=== PATIENT | female | born 1985 | race American Indian/Alaskan Native ===

== ENCOUNTER 2019-07-01 10:15 | Emergency (ER) | payer MEDICAID ==
--- NOTE | 2019-07-01 11:11 | Emergency Department Report ---
Blank Doc - Documentation Documentation: 33-year-old female that presents with left pelvic pain with 5 weeks . Denies any vaginal bleeding. This initial assessment/diagnostic orders/clinical plan/treatment(s) is/are subject to change based on patient's health status, clinical progression and re- assessment by fellow clinical providers in the ED. Further treatment and workup at subsequent clinical providers discretion. Patient/guardians urged not to elope from the ED as their condition may be serious if not clinically assessed and managed. Initial orders include: 1- Patient sent to [facility] for further evaluation and treatment 2- labs 3- UA 4- State US OB and transvaginal
[2019-07-01 12:11] LABS: Basophils # (Auto) 0.1 K/mm3 (0.0-0.1); Basophils % (Auto) 0.7 % (0.0-1.8); Eosinophils % (Auto) 0.3 % (0.0-4.3); Hematocrit 36.5 % (30.3-42.9); Lymphocytes # (Auto) 2.4 K/mm3 (1.2-5.4); Lymphocytes % (Auto) 32.1 % (13.4-35.0); Mean Corpuscular HGB Conc 33 % (30-34); Mean Corpuscular Volume 87 fl (79-97); Monocytes # (Auto) 0.5 K/mm3 (0.0-0.8); Monocytes % (Auto) 6.4 % (0.0-7.3); Platelet Count 262 K/mm3 (140-440); Red Blood Count 4.19 M/mm3 (3.65-5.03); Red Cell Distribution Width 15.2 % (13.2-15.2)
[2019-07-01 12:16] LABS: Alanine Aminotransferase 7 units/L (7-56); Albumin 4.3 g/dL (3.9-5); BUN/Creatinine Ratio 12; Blood Urea Nitrogen 7 mg/dL (7-17); Calcium 8.8 mg/dL (8.4-10.2); Hemolysis Index 18
--- NOTE | 2019-07-01 12:18 | Ultrasound Report ---
ULTRASOUND OB LESS THAN EQUAL TO 14 WEEKS FETUS ULTRASOUND OB TRANSVAGINAL HISTORY: Pelvic pain, evaluate for ectopic COMPARISON: None. TECHNIQUE: Routine transabdominal and transvaginal OB ultrasound performed. FINDINGS: Uterus: Mildly enlarged measuring 10.1 x 7.2 x 7.3 cm. Gestational Sac: Well-defined oval shape and intrauterine in location. Average diameter measures 6.1 mm which correlates with a 5 week 2 day . Yolk Sac: Normal in appearance. Fetus/Embryo: Not seen Embryonic/ cardiac activity: Not seen. Placenta: Too small for evaluation. Amniotic fluid volume: Subjectively appropriate for gestational age. Ovaries: The right ovary is normal in size and appearance with normal blood flow, measuring 4.6 x 2. 2 x 2.5 cm. A 1.9 cm simple cyst is identified in the right ovary. The left ovary is normal in size a nd appearance with normal blood flow, measuring 2.8 x 1.5 x 1.8 cm. No pelvic fluid collection. Additional findings: None. IMPRESSION Probable early normal intrauterine . An intrauterine gestational sac containing a yolk sac i s identified. No pole or cardiac activity is identified at this time. Close interval foll ow-up is recommended. Right ovarian cyst. Signer Name: José Miguel Morley Jr, MD Signed: 07/01/2019 12:13 PM Workstation Name: [id number]
[2019-07-01 12:38] LABS: Bacteria,Urine 1+ /HPF (Negative); Bilirubin,Urine NEG (Negative); Blood,Urine NEG (Negative); Color,Urine Yellow (Yellow); Mucus,Urine 3+ /HPF; Protein,Urine <15 mg/dL mg/dL (Negative); Urobilinogen,Urine < 2.0 mg/dL (<2.0)
--- NOTE | 2019-07-01 16:39 | Emergency Department Report ---
ED Abdominal Pain HPI - General Chief Complaint: Abdominal Pain Stated Complaint: ABD PAIN/ Time Seen by Provider: 07/01/19 11:08 Source: patient Mode of arrival: Ambulatory Limitations: No Limitations - History of Present Illness Initial Comments: 33-year-old female, , presents to ED with left lower quadrant pain 2 weeks, worsening over the last 3 days. Patient states she found out this morning and that she was after going to [facility] for evaluation of abdominal pain. Patient states test was time, she was informed that she was , and discharged with advice to follow with her [facility]. Patient states no ultrasound was performed. Patient denies any vaginal discharge, vaginal bleeding. MD Complaint: abdominal pain -: week(s) (2) Location: LLQ Radiation: suprapubic Migration to: no migration Severity: moderate Quality: sharp Consistency: constant Improves With: nothing Worsens With: movement, other (palpation) Associated Symptoms: denies: fever, dysuria, hematuria - Related Data LMP (females 10-50): Allergies Allergy/AdvReac Type Severity Reaction Status Date / Time latex Allergy Unknown Verified 07/01/19 10:18 ED Review of Systems ROS: Stated complaint: ABD PAIN/ Other details as noted in HPI Comment: All other systems reviewed and negative Constitutional: denies: chills, fever Gastrointestinal: abdominal pain. denies: nausea, vomiting Genitourinary: other (denies vag bleeding). denies: discharge ED Past Medical Hx - Past Medical History Previous Medical History?: No - Surgical History Past Surgical History?: No - Social History Smoking Status: Never Smoker Substance Use Type: None ED Physical Exam - General Limitations: No Limitations General appearance: alert, in no apparent distress - Head Head exam: Present: atraumatic, normocephalic - Eye Eye exam: Present: normal appearance, PERRL, EOMI - ENT ENT exam: Present: mucous membranes moist - Neck Neck exam: Present: normal inspection - Respiratory Respiratory exam: Present: normal lung sounds bilaterally. Absent: respiratory distress - Cardiovascular Cardiovascular Exam: Present: regular rate, normal rhythm - GI/Abdominal GI/Abdominal exam: Present: soft, tenderness (LLQ tenderness present). Absent: distended - Extremities Exam Extremities exam: Present: normal inspection - Neurological Exam Neurological exam: Present: alert, oriented X3 - Psychiatric Psychiatric exam: Present: normal affect, normal mood - Skin Skin exam: Present: warm, dry, intact, normal color ED Course Vital Signs 07/01/19 07/01/19 10:23 16:56 Temperature 97.9 F 98.6 F Pulse Rate 54 L 60 Respiratory 20 18 Rate Blood Pressure 158/73 Blood Pressure 136/84 [Right] O2 Sat by Pulse 100 99 Oximetry ED Medical Decision Making - Lab Data Result diagrams: 07/01/19 11:34 07/01/19 11:34 - Radiology Data Radiology results: report reviewed, image reviewed - Medical Decision Making US shows gestational sac and yolk sac, measuring 5 weeks 2 days. No adnexal masses, no signs of ectopic . Pt advised to return for f/u US and hcg level. - Differential Diagnosis ectopic preg, threatened AB, IUP, UTI Critical care attestation.: If time is entered above; I have spent that time in minutes in the direct care of this critically ill patient, excluding procedure time. ED Disposition Clinical Impression: , Abdominal pain Disposition: TO HOME OR SELFCARE Is pt being admited?: No Condition: Stable Instructions: Abdominal Pain (ED), Abdominal Pain in (ED) Additional Instructions: Return to the ER in 2 days for a repeat ultrasound and hormone level. Your hormone level today is 3,315. Referrals: PRIMARY CAREMD [Primary Care Provider] - 3-5 Days HUGO IVERSON MD [Staff Physician] - 3-5 Days Time of Disposition: 16:41
[2019-07-01 16:57] VITALS: BP 136/84
== END 2019-07-01 16:58 | disposition home or self-care (01) ==
LOC: ED 10:15
DX: O26.891 Other specified pregnancy related conditions, first trimester (principal); Z91.040 Latex allergy status; Z3A.14 14 weeks gestation of pregnancy
CPT/HCPCS: 36415; 76801; 76817; 80053; 81001; 84702; 85025; 99284

== ENCOUNTER 2019-07-06 11:56 | Emergency (ER) | payer MEDICAID ==
--- NOTE | 2019-07-06 12:05 | Event Note ---
ED Screening Note Date of service: 07/06/19 Time: 12:04 ED Screening Note: This is a 33 y.o. F. that presents to the ER with vaginal bleeding and pelvic pain that started 30 minutes ago. Patient states she had a confirmed last week. Patient not sure of gestation. LMP 05/19/2019, A1 This initial assessment/diagnostic orders/clinical plan/treatment(s) is/are subject to change based on patients health status, clinical progression and re- assessment by fellow clinical providers in the ED. Further treatment and workup at subsequent clinical providers discretion. Patient/guardian urged not to elope from the ED as their condition may be serious if not clinically assessed and managed. Initial orders include: Labs and OB US
--- NOTE | 2019-07-06 12:37 | Emergency Department Report ---
ED Female HPI - General Chief complaint: Vaginal Bleeding Stated complaint: BLEEDING//PAIN Time Seen by Provider: 07/06/19 12:04 Source: patient, family Mode of arrival: Wheelchair Limitations: No Limitations - History of Present Illness Initial comments: 33-year-old female with apparently the third emergency department visit during the current . She went to [facility] [place] and here 1 week ago. At this facility she was found to have on ultrasound: IMPRESSION Probable early normal intrauterine . An intrauterine gestational sac containing a yolk sac is identified. No pole or cardiac activity is identified at this time. Close interval follow-up is recommended. Right ovarian cyst. At that time she had a quantitative hCG of 3300. The patient states that she had some thin vaginal bleeding today. She states that she's been having cramps for 2 weeks. She states her last period was May 11 and then her normal cycle is "40 days". She is now 7 with 5 children and one voluntary interruption of . Complaint: vaginal bleeding -: Gradual, hour(s) (bleeding for hours cramps for weeks) Quality: cramping Consistency: intermittent Improves with: none Worsens with: none Are you Now?: Yes - Related Data Allergies Allergy/AdvReac Type Severity Reaction Status Date / Time latex Allergy Unknown Verified 07/06/19 12:06 ED Review of Systems ROS: Stated complaint: BLEEDING//PAIN Other details as noted in HPI Constitutional: denies: chills, fever Eyes: denies: eye pain, eye discharge, vision change ENT: denies: ear pain, throat pain Respiratory: denies: cough, shortness of breath, wheezing Cardiovascular: denies: chest pain, palpitations Endocrine: no symptoms reported Gastrointestinal: denies: abdominal pain, nausea, diarrhea Genitourinary: as per HPI, other (vaginal bleeding, pelvic cramping). denies: urgency, dysuria Musculoskeletal: denies: back pain, joint swelling, arthralgia Skin: denies: rash, lesions Neurological: denies: headache, weakness, paresthesias Psychiatric: denies: anxiety, depression Hematological/Lymphatic: denies: easy bleeding, easy bruising ED Past Medical Hx - Past Medical History Hx Hypertension: Yes Hx Diabetes: Yes Hx Asthma: Yes - Surgical History Past Surgical History?: No - Social History Smoking Status: Current Every Day Smoker Substance Use Type: Alcohol ED Physical Exam - General Limitations: No Limitations General appearance: alert, in no apparent distress - Head Head exam: Present: atraumatic, normocephalic - Eye Eye exam: Present: normal appearance. Absent: scleral icterus - ENT ENT exam: Present: mucous membranes moist - Neck Neck exam: Present: normal inspection - Respiratory Respiratory exam: Present: normal lung sounds bilaterally. Absent: respiratory distress - Cardiovascular Cardiovascular Exam: Present: regular rate, normal rhythm. Absent: systolic murmur, diastolic murmur, rubs, gallop - GI/Abdominal GI/Abdominal exam: Present: soft, normal bowel sounds. Absent: distended, tenderness, guarding, rebound, rigid - Extremities Exam Extremities exam: Present: normal inspection - Back Exam Back exam: Present: normal inspection - Neurological Exam Neurological exam: Present: alert, oriented X3, CN II-XII intact. Absent: motor sensory deficit - Psychiatric Psychiatric exam: Present: normal affect, normal mood - Skin Skin exam: Present: warm, dry, intact, normal color. Absent: rash ED Course Vital Signs 07/06/19 07/06/19 07/06/19 12:06 12:31 14:00 Temperature 98.1 F 98 F Pulse Rate 78 74 64 Respiratory 18 16 14 Rate Blood Pressure 137/68 Blood Pressure 105/72 128/66 [Left] O2 Sat by Pulse 99 98 100 Oximetry ED Medical Decision Making - Lab Data Result diagrams: 07/06/19 12:28 Laboratory Results - last 24 hr 07/06/19 07/06/19 07/06/19 12:28 12:28 12:28 WBC 12.9 H RBC 4.25 Hgb 12.4 Hct 37.2 MCV 88 MCH 29 MCHC 33 RDW 15.6 H Plt Count 288 Lymph % (Auto) 15.8 [place] % (Auto) 7.1 Eos % (Auto) 0.3 Baso % (Auto) 0.8 Lymph # 2.0 [place] # 0.9 H Eos # 0.0 Baso # 0.1 Seg Neutrophils % 76.0 H Seg Neutrophils # 9.8 H HCG, Quant 3469 H Blood Type O POSITIVE Laboratory Results - last 24 hr 07/06/19 07/06/19 07/06/19 12:28 12:28 12:28 WBC 12.9 H RBC 4.25 Hgb 12.4 Hct 37.2 MCV 88 MCH 29 MCHC 33 RDW 15.6 H Plt Count 288 Lymph % (Auto) 15.8 [place] % (Auto) 7.1 Eos % (Auto) 0.3 Baso % (Auto) 0.8 Lymph # 2.0 [place] # 0.9 H Eos # 0.0 Baso # 0.1 Seg Neutrophils % 76.0 H Seg Neutrophils # 9.8 H HCG, Quant 3469 H Blood Type O POSITIVE Laboratory Results - last 24 hr 07/06/19 07/06/19 07/06/19 12:28 12:28 12:28 WBC 12.9 H RBC 4.25 Hgb 12.4 Hct 37.2 MCV 88 MCH 29 MCHC 33 RDW 15.6 H Plt Count 288 Lymph % (Auto) 15.8 [place] % (Auto) 7.1 Eos % (Auto) 0.3 Baso % (Auto) 0.8 Lymph # 2.0 [place] # 0.9 H Eos # 0.0 Baso # 0.1 Seg Neutrophils % 76.0 H Seg Neutrophils # 9.8 H HCG, Quant 3469 H Blood Type O POSITIVE Laboratory Results - last 24 hr 07/06/19 07/06/19 07/06/19 12:28 12:28 12:28 WBC 12.9 H RBC 4.25 Hgb 12.4 Hct 37.2 MCV 88 MCH 29 MCHC 33 RDW 15.6 H Plt Count 288 Lymph % (Auto) 15.8 [place] % (Auto) 7.1 Eos % (Auto) 0.3 Baso % (Auto) 0.8 Lymph # 2.0 [place] # 0.9 H Eos # 0.0 Baso # 0.1 Seg Neutrophils % 76.0 H Seg Neutrophils # 9.8 H HCG, Quant 3469 H Blood Type O POSITIVE Laboratory Results - last 24 hr 07/06/19 07/06/19 07/06/19 12:06 12:28 12:28 WBC 12.9 H RBC 4.25 Hgb 12.4 Hct 37.2 MCV 88 MCH 29 MCHC 33 RDW 15.6 H Plt Count 288 Lymph % (Auto) 15.8 [place] % (Auto) 7.1 Eos % (Auto) 0.3 Baso % (Auto) 0.8 Lymph # 2.0 [place] # 0.9 H Eos # 0.0 Baso # 0.1 Seg Neutrophils % 76.0 H Seg Neutrophils # 9.8 H HCG, Quant 3469 H Urine Color Yellow Urine Turbidity Cloudy Urine pH 7.0 Ur Specific [place] 1.017 Urine Protein 30 mg/dl Urine Glucose (UA) Neg Urine Ketones Neg Urine Blood Lg Urine Nitrite Neg Urine Bilirubin Neg Urine Urobilinogen < 2.0 Ur Leukocyte Esterase Sm Urine WBC (Auto) 28.0 H Urine RBC (Auto) > 182.0 U Epithel Cells (Auto) 1.0 Urine Mucus Few Blood Type 07/06/19 12:28 WBC RBC Hgb Hct MCV MCH MCHC RDW Plt Count Lymph % (Auto) [place] % (Auto) Eos % (Auto) Baso % (Auto) Lymph # [place] # Eos # Baso # Seg Neutrophils % Seg Neutrophils # HCG, Quant Urine Color Urine Turbidity Urine pH Ur Specific [place] Urine Protein Urine Glucose (UA) Urine Ketones Urine Blood Urine Nitrite Urine Bilirubin Urine Urobilinogen Ur Leukocyte Esterase Urine WBC (Auto) Urine RBC (Auto) U Epithel Cells (Auto) Urine Mucus Blood Type O POSITIVE - Radiology Data interpreted by me: FINDINGS: There is no sonographic evidence of intrauterine . No gestational sac is seen. There is a 3 cm right ovarian cyst. The right ovary is otherwise unremarkable. Left ovary is unremarkable. No adnexal lesions are seen. IMPRESSION: 1. Previously seen intrauterine gestational sac is no longer identified. These findings are concerning for miscarriage. 2. No adnexal lesions, no free fluid. Signer Name: Jose Arguelles MD Critical care attestation.: If time is entered above; I have spent that time in minutes in the direct care of this critically ill patient, excluding procedure time. ED Disposition Clinical Impression: Spontaneous UTI (urinary tract infection) Qualifiers: Urinary tract infection type: site unspecified Hematuria presence: with hematuria Qualified Code(s): N39.0 - Urinary tract infection, site not specified; R31.9 - Hematuria, unspecified Disposition: TO HOME OR SELFCARE Is pt being admited?: No Does the pt Need Aspirin: No Condition: Stable Instructions: Spontaneous Miscarriage (ED), Urinary Tract Infection in Women (ED) Additional Instructions: Follow-up with [facility]. Return to the emergency department any acute change or problem. Rx as directed. Referrals: PRIMARY CARE, [Primary Care Provider] - 3-5 Days AMA GARCIA MD [Staff Physician] - 2-3 Days Time of Disposition: 16:54
[2019-07-06 12:56] LABS: Basophils # (Auto) 0.1 K/mm3 (0.0-0.1); Basophils % (Auto) 0.8 % (0.0-1.8); Eosinophils % (Auto) 0.3 % (0.0-4.3); Hematocrit 37.2 % (30.3-42.9); Hemoglobin 12.4 gm/dl (10.1-14.3); Lymphocytes % (Auto) 15.8 % (13.4-35.0); Mean Corpuscular HGB Conc 33 % (30-34); Mean Corpuscular Volume 88 fl (79-97); Monocytes # (Auto) 0.9 K/mm3 (0.0-0.8); Monocytes % (Auto) 7.1 % (0.0-7.3); Platelet Count 288 K/mm3 (140-440); Red Blood Count 4.25 M/mm3 (3.65-5.03); Red Cell Distribution Width 15.6 % (13.2-15.2)
--- NOTE | 2019-07-06 13:56 | Ultrasound Report ---
US OB <= 14 weeks fetus, US OB transvaginal INDICATION / CLINICAL INFORMATION: Vaginal bleeding and abdominal pain, preg. COMPARISON: 5 days prior. FINDINGS: There is no sonographic evidence of intrauterine . No gestational sac is seen. There is a 3 cm right ovarian cyst. The right ovary is otherwise unremarkable. Left ovary is unremarkable. No adne xal lesions are seen. IMPRESSION: 1. Previously seen intrauterine gestational sac is no longer identified. These findings are concernin g for miscarriage. 2. No adnexal lesions, no free fluid. Signer Name: Jose Arguelles MD Signed: 07/06/2019 1:51 PM Workstation Name: [id number]
[2019-07-06 14:01] VITALS: BP 128/66
[2019-07-06] MEDS ORDERED: NORCO 5/325 PO ONE (14:51)
[2019-07-06 16:41] LABS: Bilirubin,Urine NEG (Negative); Blood,Urine LG (Negative); Color,Urine Yellow (Yellow); Mucus,Urine FEW /HPF; Urobilinogen,Urine < 2.0 mg/dL (<2.0)
[2019-07-06] MEDS ORDERED: IBUPROFEN PO ONE (16:41)
[2019-07-06 16:44] LABS: RBC,Urine > 182.0 /HPF (0.0-6.0)
== END 2019-07-06 17:42 | disposition home or self-care (01) ==
LOC: ED 11:56
DX: O03.9 Complete or unspecified spontaneous abortion without complication (principal); O23.41 Unspecified infection of urinary tract in pregnancy, first trimester; Z3A.01 Less than 8 weeks gestation of pregnancy
CPT/HCPCS: 36415; 76801; 76817; 81001; 84702; 85025; 86900; 86901; 87086